=== PATIENT | female | born 1950 | race Caucasian/White ===

== ENCOUNTER 2017-12-26 11:41 | Day surgery (SDC) | payer MEDICARE, OTHER ==
[2017-12-26] MEDS ORDERED: PROPOFOL 20 ML (12:40)
[2017-12-26] MEDS ORDERED: ALBUTEROL HFA 8 GM INHALER (12:40)
[2017-12-26] MEDS ORDERED: LIDOCAINE 2% (SDV) 5 ML INJ (12:40)
[2017-12-29] MEDS ORDERED: PROPOFOL 40 ML (15:07)
== END 2017-12-26 14:51 | disposition home or self-care (01) ==
LOC: GIL 11:41
DX: K21.9 Gastro-esophageal reflux disease without esophagitis (principal); E07.9 Disorder of thyroid, unspecified; E78.5 Hyperlipidemia, unspecified; I10 Essential (primary) hypertension; E66.9 Obesity, unspecified; Z68.36 Body mass index [BMI] 36.0-36.9, adult; J45.909 Unspecified asthma, uncomplicated
CPT/HCPCS: 43235

== ENCOUNTER 2017-12-27 22:05 | Inpatient (IN) | payer MEDICARE, OTHER ==
[2017-12-27] MEDS: morphine 2 MG INJ IV (23:26)
[2017-12-27] MEDS: ONDANSETRON 4 MG INJ IV (23:27)
[2017-12-27 23:50] LABS: URINE BLOOD (Dip) POC Trace-intact (NEGATIVE); URINE KETONES (Dip) POC Negative (NEGATIVE); URINE LEUKOCYTE EST (Dip) POC Negative (NEGATIVE); URINE NITRITE (Dip) POC Negative (NEGATIVE); URINE TOTAL PROTEIN POC 1+ (NEGATIVE)
[2017-12-27 23:59] LABS: ADD MAN DIFF? NO
[2017-12-28 00:01] LABS: BASOPHILS % 0.1 % (0.0-2.0); HEMOGLOBIN 9.8 g/dl (12.0-16.0); LYMPHOCYTES % 5.4 % (15.0-51.0); MEAN CORPUSCULAR HEMOGLOBIN 36.7 pg (29.0-33.0); MEAN CORPUSCULAR VOLUME 104.9 fl (82.0-101.0); MEAN PLATELET VOLUME 10.4 fl (7.4-10.4); MONOCYTE # 1.1 10^3/ul (0.3-0.9); MONOCYTES % 5.7 % (0.0-11.0); NEUTROPHIL # 16.3 10^3/ul (1.6-7.5); NEUTROPHILS % 87.6 % (39.0-77.0); NUCLEATED RED BLOOD CELLS # 0.1 10^3/ul (0.0-0.0); NUCLEATED RED BLOOD CELLS% 0.3 /100WBC (0.0-0.0); PLATELET COUNT 536 10^3/UL (140-415); RED BLOOD COUNT 2.67 10^6/ul (4.20-5.40); RED CELL DISTRIBUTION WIDTH 17.6 % (11.5-14.5)
[2017-12-28 00:01] LABS: WHITE BLOOD COUNT 18.6 10^3/ul (4.8-10.8)
[2017-12-28 00:25] LABS: ALANINE AMINOTRANSFERASE 37 IU/L (13-69); ALBUMIN 5.3 g/dl (3.3-4.9); ALBUMIN/GLOBULIN RATIO 1.89; ALKALINE PHOSPHATASE 82 IU/L (42-121); ANION GAP 19 (8-16); ASPARTATE AMINO TRANSFERASE 54 IU/L (15-46); BILIRUBIN,INDIRECT 3.7 mg/dl (0-1.1); BILIRUBIN,TOTAL 3.7 mg/dl (0.2-1.3); BLOOD UREA NITROGEN 21 mg/dl (7-20); CALCIUM 10.9 mg/dl (8.4-10.2); CARBON DIOXIDE 27 mmol/L (21-31); CHLORIDE 98 mmol/L (97-110); CREATININE 1.22 mg/dl (0.44-1.00); GLUCOSE 173 mg/dl (70-220); LIPASE 49 U/L (23-300); POTASSIUM 3.3 mmol/L (3.5-5.1); SODIUM 141 mmol/L (135-144); TOTAL PROTEIN 8.1 g/dl (6.1-8.1)
[2017-12-28 00:35] LABS: POSITIVE DIFF 10
[2017-12-28] MEDS: LABETALOL HCL 20MG INJ IV (01:12)
[2017-12-28] MEDS ORDERED: POTASSIUM CHLORIDE 50 ML IVPB (03:00)
[2017-12-28] MEDS ORDERED: NACL 0.9% 3 ML SYG IV (03:30)
[2017-12-28] MEDS ORDERED: NA PHOSPHATE/BIPHOS 133 ML ENEMA PR (03:30)
[2017-12-28] MEDS ORDERED: ALBUTEROL HFA 8 GM INHALER INH (03:30)
[2017-12-28] MEDS ORDERED: METOCLOPRAMIDE 10 MG INJ IV (03:30)
[2017-12-28] MEDS ORDERED: BISACODYL 10 MG SUPP PR (03:30)
[2017-12-28] MEDS: ONDANSETRON 4 MG INJ IV ×2 (03:53→20:32)
[2017-12-28] MEDS: PIPER-TAZO 2.25 GM (PMX) 50 ML IVPB ×4 (04:04→18:22)
[2017-12-28] MEDS: POTASSIUM CHLORIDE 10 MEQ in DEXTROSE 5% 50 ML IV (04:05)
[2017-12-28] MEDS: D5W-0.45 NACL + KCL 20 MEQ 1,000 ML IV ×3 (06:12→23:18)
[2017-12-28] MEDS: LEVOTHYROXINE 100 MCG VIAL IV (06:12)
[2017-12-28] MEDS: PANTOPRAZOLE 40 MG INJ IV (06:12)
[2017-12-28 13:46] LABS: LACTIC ACID 1.4 mmol/L (0.5-2.0)
[2017-12-28] MEDS ORDERED: POTASSIUM CHLORIDE 100 ML IVPB ×2 (14:00→18:00)
[2017-12-28] MEDS: SALMETEROL/FLUTICASONE 500/50 INHA INH ×2 (17:09→21:05)
[2017-12-28] MEDS: TIOTROPIUM 18 MCG CAPSULE INHA DEV INH (17:10)
[2017-12-28] MEDS: METOCLOPRAMIDE 5 MG TAB PO ×2 (17:11→22:32)
[2017-12-28] MEDS: PANTOPRAZOLE (EC) 40 MG TAB PO (17:11)
[2017-12-28] MEDS: MONTELUKAST 10 MG TAB PO (17:12)
[2017-12-28] MEDS: POTASSIUM CHLORIDE 100 ML IVPB ×2 (20:01→22:09)
[2017-12-28] MEDS: morphine 2 MG INJ IV (20:32)
[2017-12-28] MEDS: FAMOTIDINE 20 MG TAB PO (21:05)
[2017-12-28] MEDS: DOCUSATE SODIUM 250 MG CAP PO (22:30)
[2017-12-28] MEDS: ATORVASTATIN 10 MG TAB PO (22:30)
[2017-12-28] MEDS: FISH OIL 1,000 MG CAP PO (22:30)
[2017-12-28] MEDS: METOPROLOL (XL) 100 MG TAB PO (22:35)
[2017-12-28] MEDS: BUPROPION (XL) 150 MG TAB PO (22:36)
[2017-12-29] MEDS: PIPER-TAZO 2.25 GM (PMX) 50 ML IVPB ×4 (00:26→17:22)
[2017-12-29 05:52] LABS: ADD MAN DIFF? NO
[2017-12-29 06:00] LABS: BASOPHILS % 0.1 % (0.0-2.0); HEMATOCRIT 26.2 % (37.0-47.0); HEMOGLOBIN 9.2 g/dl (12.0-16.0); LYMPHOCYTES # 1.3 10^3/ul (0.8-2.9); LYMPHOCYTES % 7.8 % (15.0-51.0); MEAN CORPUSCULAR HEMOGLOBIN 37.6 pg (29.0-33.0); MEAN CORPUSCULAR HGB CONC 35.1 g/dl (32.0-37.0); MEAN CORPUSCULAR VOLUME 106.9 fl (82.0-101.0); MEAN PLATELET VOLUME 9.8 fl (7.4-10.4); MONOCYTE # 1.1 10^3/ul (0.3-0.9); MONOCYTES % 6.7 % (0.0-11.0); NEUTROPHIL # 13.9 10^3/ul (1.6-7.5); NEUTROPHILS % 83.7 % (39.0-77.0); NUCLEATED RED BLOOD CELLS # 0.1 10^3/ul (0.0-0.0); NUCLEATED RED BLOOD CELLS% 0.3 /100WBC (0.0-0.0); PLATELET COUNT 447 10^3/UL (140-415); RED BLOOD COUNT 2.45 10^6/ul (4.20-5.40); RED CELL DISTRIBUTION WIDTH 18.5 % (11.5-14.5)
[2017-12-29 06:00] LABS: WHITE BLOOD COUNT 16.7 10^3/ul (4.8-10.8)
[2017-12-29 06:13] LABS: ALANINE AMINOTRANSFERASE 40 IU/L (13-69); ALBUMIN 4.2 g/dl (3.3-4.9); ALKALINE PHOSPHATASE 69 IU/L (42-121); ASPARTATE AMINO TRANSFERASE 49 IU/L (15-46); BILIRUBIN,INDIRECT 2.5 mg/dl (0-1.1); BILIRUBIN,TOTAL 2.5 mg/dl (0.2-1.3); TOTAL PROTEIN 6.8 g/dl (6.1-8.1)
[2017-12-29 06:17] LABS: ALANINE AMINOTRANSFERASE 42 IU/L (13-69); ALBUMIN 4.3 g/dl (3.3-4.9); ALBUMIN/GLOBULIN RATIO 1.72; ALKALINE PHOSPHATASE 69 IU/L (42-121); ANION GAP 15 (8-16); ASPARTATE AMINO TRANSFERASE 50 IU/L (15-46); BILIRUBIN,INDIRECT 2.6 mg/dl (0-1.1); BILIRUBIN,TOTAL 2.6 mg/dl (0.2-1.3); BLOOD UREA NITROGEN 28 mg/dl (7-20); CALCIUM 9.2 mg/dl (8.4-10.2); CARBON DIOXIDE 25 mmol/L (21-31); CHLORIDE 106 mmol/L (97-110); CREATININE 1.27 mg/dl (0.44-1.00); GLUCOSE 135 mg/dl (70-220); POTASSIUM 3.9 mmol/L (3.5-5.1); SODIUM 142 mmol/L (135-144); TOTAL PROTEIN 6.8 g/dl (6.1-8.1)
[2017-12-29] MEDS ORDERED: LIDOCAINE 2% (SDV) 5 ML INJ (07:00)
[2017-12-29] MEDS: LEVOTHYROXINE 75 MCG TAB PO (07:00)
[2017-12-29] MEDS ORDERED: PROPOFOL 200 MG INJ (07:00)
[2017-12-29] MEDS: METOCLOPRAMIDE 5 MG TAB PO ×5 (07:05→20:52)
[2017-12-29 07:13] LABS: PHOSPHORUS 2.7 mg/dl (2.5-4.9)
[2017-12-29 07:13] LABS: MAGNESIUM 1.8 mg/dl (1.7-2.5)
[2017-12-29] MEDS: ONDANSETRON 4 MG INJ IV (07:46)
[2017-12-29 08:31] LABS: ADD MAN DIFF? NO
[2017-12-29 08:42] LABS: BASOPHILS % 0.2 % (0.0-2.0); EOSINOPHILS % 0.1 % (0.0-7.0); HEMATOCRIT 26.3 % (37.0-47.0); HEMOGLOBIN 9.1 g/dl (12.0-16.0); LYMPHOCYTES # 1.2 10^3/ul (0.8-2.9); LYMPHOCYTES % 7.3 % (15.0-51.0); MEAN CORPUSCULAR HEMOGLOBIN 37.3 pg (29.0-33.0); MEAN CORPUSCULAR HGB CONC 34.6 g/dl (32.0-37.0); MEAN CORPUSCULAR VOLUME 107.8 fl (82.0-101.0); MEAN PLATELET VOLUME 10.1 fl (7.4-10.4); MONOCYTE # 1.1 10^3/ul (0.3-0.9); MONOCYTES % 6.7 % (0.0-11.0); NEUTROPHIL # 13.4 10^3/ul (1.6-7.5); NEUTROPHILS % 83.3 % (39.0-77.0); NUCLEATED RED BLOOD CELLS # 0.1 10^3/ul (0.0-0.0); NUCLEATED RED BLOOD CELLS% 0.3 /100WBC (0.0-0.0); PLATELET COUNT 446 10^3/UL (140-415); RED BLOOD COUNT 2.44 10^6/ul (4.20-5.40); RED CELL DISTRIBUTION WIDTH 18.9 % (11.5-14.5)
[2017-12-29] MEDS: ASPIRIN (EC) 81 MG TAB PO (08:53)
[2017-12-29] MEDS: PANTOPRAZOLE (EC) 40 MG TAB PO (08:53)
[2017-12-29] MEDS: CHOLECALCIFEROL 1,000 UNIT TAB PO (08:53)
[2017-12-29] MEDS: FISH OIL 1,000 MG CAP PO ×2 (08:53→20:50)
[2017-12-29] MEDS: DOCUSATE SODIUM 250 MG CAP PO ×2 (08:53→20:49)
[2017-12-29] MEDS: DULOXETINE 30 MG CAP DR PO (08:53)
[2017-12-29] MEDS: MONTELUKAST 10 MG TAB PO (08:53)
[2017-12-29] MEDS: VITAMIN E 400 UNITS CAP PO (08:54)
[2017-12-29] MEDS: D5W-0.45 NACL + KCL 20 MEQ 1,000 ML IV ×3 (08:54→19:51)
[2017-12-29] MEDS: HYDROCHLOROTHIAZIDE 12.5 MG CAP PO ×2 (09:11→11:44)
[2017-12-29] MEDS: METOPROLOL (XL) 100 MG TAB PO ×3 (09:11→20:50)
[2017-12-29] MEDS: TIOTROPIUM 18 MCG CAPSULE INHA DEV INH (09:12)
[2017-12-29] MEDS: SALMETEROL/FLUTICASONE 500/50 INHA INH ×2 (09:12→20:49)
[2017-12-29] MEDS: METOCLOPRAMIDE 10 MG INJ IV (10:00)
[2017-12-29] MEDS: ENALAPRILAT 1.25 MG INJ IV (10:58)
[2017-12-29] MEDS: VALSARTAN 160 MG TAB PO (11:43)
[2017-12-29] MEDS: BUPROPION (XL) 150 MG TAB PO (20:52)
[2017-12-29] MEDS: FAMOTIDINE 20 MG TAB PO (20:52)
[2017-12-29] MEDS: ATORVASTATIN 10 MG TAB PO (22:05)
[2017-12-30] MEDS: PIPER-TAZO 2.25 GM (PMX) 50 ML IVPB ×5 (00:06→23:44)
[2017-12-30] MEDS: ZOLPIDEM 5 MG TAB PO (00:38)
[2017-12-30] MEDS: ENALAPRILAT 1.25 MG INJ IV ×2 (04:15→12:14)
[2017-12-30 05:08] LABS: ADD MAN DIFF? NO
[2017-12-30 05:13] LABS: WHITE BLOOD COUNT 11.9 10^3/ul (4.8-10.8)
[2017-12-30 05:13] LABS: BASOPHILS % 0.2 % (0.0-2.0); EOSINOPHILS % 0.1 % (0.0-7.0); HEMATOCRIT 24.1 % (37.0-47.0); HEMOGLOBIN 8.4 g/dl (12.0-16.0); LYMPHOCYTES # 1.4 10^3/ul (0.8-2.9); LYMPHOCYTES % 11.5 % (15.0-51.0); MEAN CORPUSCULAR HGB CONC 34.9 g/dl (32.0-37.0); MEAN CORPUSCULAR VOLUME 106.2 fl (82.0-101.0); MEAN PLATELET VOLUME 9.8 fl (7.4-10.4); MONOCYTES % 8.6 % (0.0-11.0); NEUTROPHIL # 9.3 10^3/ul (1.6-7.5); NEUTROPHILS % 78.2 % (39.0-77.0); NUCLEATED RED BLOOD CELLS # 0.1 10^3/ul (0.0-0.0); NUCLEATED RED BLOOD CELLS% 0.6 /100WBC (0.0-0.0); PLATELET COUNT 384 10^3/UL (140-415); RED BLOOD COUNT 2.27 10^6/ul (4.20-5.40)
[2017-12-30] MEDS: D5W-0.45 NACL + KCL 20 MEQ 1,000 ML IV ×3 (05:18→18:20)
[2017-12-30 05:47] LABS: ALANINE AMINOTRANSFERASE 43 IU/L (13-69); ALBUMIN 3.7 g/dl (3.3-4.9); ALBUMIN/GLOBULIN RATIO 1.54; ALKALINE PHOSPHATASE 68 IU/L (42-121); AMYLASE 68 U/L (11-123); ANION GAP 11 (8-16); ASPARTATE AMINO TRANSFERASE 39 IU/L (15-46); BLOOD UREA NITROGEN 25 mg/dl (7-20); CALCIUM 8.7 mg/dl (8.4-10.2); CARBON DIOXIDE 28 mmol/L (21-31); CHLORIDE 104 mmol/L (97-110); CREATININE 1.12 mg/dl (0.44-1.00); GLUCOSE 114 mg/dl (70-220); LIPASE 73 U/L (23-300); POTASSIUM 3.3 mmol/L (3.5-5.1); SODIUM 140 mmol/L (135-144); TOTAL PROTEIN 6.1 g/dl (6.1-8.1)
[2017-12-30] MEDS ORDERED: PANTOPRAZOLE (EC) 40 MG TAB PO (06:00)
[2017-12-30] MEDS ORDERED: BISMUTH SUBSALICYLATE PO (07:35)
[2017-12-30] MEDS: METOCLOPRAMIDE 5 MG TAB PO ×4 (07:43→21:22)
[2017-12-30] MEDS: LEVOTHYROXINE 75 MCG TAB PO (07:43)
[2017-12-30] MEDS: HYDROCHLOROTHIAZIDE 12.5 MG CAP PO (07:43)
[2017-12-30] MEDS: LACTATED RINGER'S 500 ML IV (07:44)
[2017-12-30] MEDS: METOPROLOL (XL) 100 MG TAB PO ×2 (07:59→21:22)
[2017-12-30] MEDS: TIOTROPIUM 18 MCG CAPSULE INHA DEV INH (08:38)
[2017-12-30] MEDS: SALMETEROL/FLUTICASONE 500/50 INHA INH ×2 (08:38→21:18)
[2017-12-30] MEDS: CHOLECALCIFEROL 1,000 UNIT TAB PO (08:39)
[2017-12-30] MEDS: ASPIRIN (EC) 81 MG TAB PO (08:39)
[2017-12-30] MEDS: POTASSIUM CHLORIDE (SR) 20 MEQ TAB PO (08:39)
[2017-12-30] MEDS: MONTELUKAST 10 MG TAB PO (08:39)
[2017-12-30] MEDS: VALSARTAN 160 MG TAB PO (08:39)
[2017-12-30] MEDS: VITAMIN E 400 UNITS CAP PO (08:39)
[2017-12-30] MEDS: PANTOPRAZOLE (EC) 40 MG TAB PO ×2 (08:40→21:20)
[2017-12-30] MEDS: AMOXICILLIN 250 MG CAP PO ×2 (08:40→21:20)
[2017-12-30] MEDS: BISMUTH SUBSALICYLATE 240 ML BTL PO ×3 (08:41→21:22)
[2017-12-30] MEDS: FISH OIL 1,000 MG CAP PO ×2 (09:00→21:22)
[2017-12-30] MEDS: ONDANSETRON 4 MG INJ IV (09:54)
[2017-12-30] MEDS: CLARITHROMYCIN 500 MG TAB PO ×2 (09:56→21:19)
[2017-12-30] MEDS: DOCUSATE SODIUM 250 MG CAP PO ×2 (10:17→21:20)
[2017-12-30] MEDS: DULOXETINE 30 MG CAP DR PO (10:17)
[2017-12-30] MEDS: AMLODIPINE 5 MG TAB PO (16:27)
[2017-12-30] MEDS: DOXAZOSIN 1 MG TAB PO (19:10)
[2017-12-30] MEDS: ATORVASTATIN 10 MG TAB PO (21:15)
[2017-12-30] MEDS: BUPROPION (XL) 150 MG TAB PO (21:15)
[2017-12-30] MEDS: DOXAZOSIN 2 MG TAB PO (21:20)
[2017-12-30] MEDS: FAMOTIDINE 20 MG TAB PO (21:20)
[2017-12-31] MEDS: D5W-0.45 NACL + KCL 20 MEQ 1,000 ML IV ×2 (02:34→16:26)
[2017-12-31] MEDS: PIPER-TAZO 2.25 GM (PMX) 50 ML IVPB ×2 (05:10→11:41)
[2017-12-31] MEDS: DOXAZOSIN 2 MG TAB PO ×2 (05:12→14:00)
[2017-12-31 05:37] LABS: ADD MAN DIFF? NO
[2017-12-31 05:41] LABS: BASOPHILS % 0.3 % (0.0-2.0); EOSINOPHILS # 0.1 10^3/ul (0.0-0.5); EOSINOPHILS % 0.8 % (0.0-7.0); HEMATOCRIT 22.1 % (37.0-47.0); HEMOGLOBIN 7.6 g/dl (12.0-16.0); LYMPHOCYTES # 1.4 10^3/ul (0.8-2.9); LYMPHOCYTES % 19.1 % (15.0-51.0); MEAN CORPUSCULAR HEMOGLOBIN 36.9 pg (29.0-33.0); MEAN CORPUSCULAR HGB CONC 34.4 g/dl (32.0-37.0); MEAN CORPUSCULAR VOLUME 107.3 fl (82.0-101.0); MONOCYTE # 0.8 10^3/ul (0.3-0.9); MONOCYTES % 10.5 % (0.0-11.0); NEUTROPHIL # 4.9 10^3/ul (1.6-7.5); NUCLEATED RED BLOOD CELLS% 0.3 /100WBC (0.0-0.0); PLATELET COUNT 299 10^3/UL (140-415); RED BLOOD COUNT 2.06 10^6/ul (4.20-5.40); RED CELL DISTRIBUTION WIDTH 17.9 % (11.5-14.5)
[2017-12-31 05:41] LABS: WHITE BLOOD COUNT 7.2 10^3/ul (4.8-10.8)
[2017-12-31] MEDS: METOCLOPRAMIDE 5 MG TAB PO ×4 (06:01→20:55)
[2017-12-31] MEDS: LEVOTHYROXINE 75 MCG TAB PO (06:01)
[2017-12-31 06:28] LABS: ALANINE AMINOTRANSFERASE 37 IU/L (13-69); ALBUMIN 3.3 g/dl (3.3-4.9); ALBUMIN/GLOBULIN RATIO 1.65; ALKALINE PHOSPHATASE 52 IU/L (42-121); ANION GAP 14 (8-16); ASPARTATE AMINO TRANSFERASE 25 IU/L (15-46); BILIRUBIN,INDIRECT 0.8 mg/dl (0-1.1); BILIRUBIN,TOTAL 0.8 mg/dl (0.2-1.3); BLOOD UREA NITROGEN 19 mg/dl (7-20); CALCIUM 7.9 mg/dl (8.4-10.2); CARBON DIOXIDE 26 mmol/L (21-31); CHLORIDE 100 mmol/L (97-110); CREATININE 0.99 mg/dl (0.44-1.00); GLUCOSE 148 mg/dl (70-220); LIPASE 79 U/L (23-300); POTASSIUM 3.5 mmol/L (3.5-5.1); SODIUM 136 mmol/L (135-144); TOTAL PROTEIN 5.3 g/dl (6.1-8.1)
[2017-12-31] MEDS: SALMETEROL/FLUTICASONE 500/50 INHA INH ×2 (08:16→20:56)
[2017-12-31] MEDS: FISH OIL 1,000 MG CAP PO ×2 (08:16→20:56)
[2017-12-31] MEDS: TIOTROPIUM 18 MCG CAPSULE INHA DEV INH (08:17)
[2017-12-31] MEDS: PANTOPRAZOLE (EC) 40 MG TAB PO ×2 (08:17→20:54)
[2017-12-31] MEDS: VALSARTAN 160 MG TAB PO (08:18)
[2017-12-31] MEDS: DOCUSATE SODIUM 250 MG CAP PO ×2 (08:18→20:55)
[2017-12-31] MEDS: HYDROCHLOROTHIAZIDE 12.5 MG CAP PO (08:18)
[2017-12-31] MEDS: ASPIRIN (EC) 81 MG TAB PO (08:19)
[2017-12-31] MEDS: MONTELUKAST 10 MG TAB PO (08:19)
[2017-12-31] MEDS: CHOLECALCIFEROL 1,000 UNIT TAB PO (08:19)
[2017-12-31] MEDS: DULOXETINE 30 MG CAP DR PO (08:20)
[2017-12-31] MEDS: AMLODIPINE 5 MG TAB PO (08:20)
[2017-12-31] MEDS: AMOXICILLIN 250 MG CAP PO (08:21)
[2017-12-31] MEDS: CLARITHROMYCIN 500 MG TAB PO ×2 (08:22→20:54)
[2017-12-31] MEDS: METOPROLOL (XL) 100 MG TAB PO ×2 (08:22→20:55)
[2017-12-31] MEDS: BISMUTH SUBSALICYLATE 240 ML BTL PO ×4 (08:23→20:59)
[2017-12-31] MEDS: VITAMIN E 400 UNITS CAP PO (08:27)
[2017-12-31] MEDS: LEVOFLOXACIN 500 MG TAB PO (13:14)
[2017-12-31] MEDS: BUPROPION (XL) 150 MG TAB PO (20:53)
[2017-12-31] MEDS: FAMOTIDINE 20 MG TAB PO (20:53)
[2017-12-31] MEDS: ATORVASTATIN 10 MG TAB PO (20:55)
[2018-01-01] MEDS: AMOXICILLIN 250 MG CAP PO ×3 (00:21→21:21)
[2018-01-01] MEDS: DOXAZOSIN 2 MG TAB PO ×4 (00:26→21:24)
[2018-01-01] MEDS: D5W-0.45 NACL + KCL 20 MEQ 1,000 ML IV ×2 (03:55→16:05)
[2018-01-01] MEDS: PANTOPRAZOLE (EC) 40 MG TAB PO ×2 (03:58→21:21)
[2018-01-01 05:16] LABS: ADD MAN DIFF? NO
[2018-01-01 05:21] LABS: WHITE BLOOD COUNT 5.1 10^3/ul (4.8-10.8)
[2018-01-01 05:21] LABS: BASOPHILS % 0.2 % (0.0-2.0); EOSINOPHILS # 0.1 10^3/ul (0.0-0.5); EOSINOPHILS % 2.2 % (0.0-7.0); HEMATOCRIT 21.6 % (37.0-47.0); HEMOGLOBIN 7.7 g/dl (12.0-16.0); MEAN CORPUSCULAR HEMOGLOBIN 37.6 pg (29.0-33.0); MEAN CORPUSCULAR HGB CONC 35.6 g/dl (32.0-37.0); MEAN CORPUSCULAR VOLUME 105.4 fl (82.0-101.0); MONOCYTE # 0.5 10^3/ul (0.3-0.9); NEUTROPHIL # 3.4 10^3/ul (1.6-7.5); NEUTROPHILS % 66.8 % (39.0-77.0); NUCLEATED RED BLOOD CELLS% 0.4 /100WBC (0.0-0.0); PLATELET COUNT 275 10^3/UL (140-415); RED BLOOD COUNT 2.05 10^6/ul (4.20-5.40); RED CELL DISTRIBUTION WIDTH 17.6 % (11.5-14.5)
[2018-01-01 06:08] LABS: ANION GAP 13 (8-16); BLOOD UREA NITROGEN 15 mg/dl (7-20); CALCIUM 7.8 mg/dl (8.4-10.2); CARBON DIOXIDE 22 mmol/L (21-31); CHLORIDE 101 mmol/L (97-110); CREATININE 0.93 mg/dl (0.44-1.00); GLUCOSE 109 mg/dl (70-220); POTASSIUM 3.7 mmol/L (3.5-5.1); SODIUM 132 mmol/L (135-144)
[2018-01-01] MEDS: LEVOFLOXACIN 250 MG TAB PO (06:57)
[2018-01-01] MEDS: LEVOTHYROXINE 75 MCG TAB PO (06:57)
[2018-01-01] MEDS: METOCLOPRAMIDE 5 MG TAB PO ×4 (07:00→21:22)
[2018-01-01] MEDS: BISMUTH SUBSALICYLATE 240 ML BTL PO ×4 (08:16→21:21)
[2018-01-01] MEDS: SALMETEROL/FLUTICASONE 500/50 INHA INH ×2 (08:17→21:21)
[2018-01-01] MEDS: DULOXETINE 30 MG CAP DR PO (08:17)
[2018-01-01] MEDS: CLARITHROMYCIN 500 MG TAB PO ×2 (08:18→21:21)
[2018-01-01] MEDS: DOCUSATE SODIUM 250 MG CAP PO ×2 (08:18→21:22)
[2018-01-01] MEDS: VITAMIN E 400 UNITS CAP PO (08:18)
[2018-01-01] MEDS: FISH OIL 1,000 MG CAP PO ×2 (08:18→21:22)
[2018-01-01] MEDS: CHOLECALCIFEROL 1,000 UNIT TAB PO (08:19)
[2018-01-01] MEDS: HYDROCHLOROTHIAZIDE 12.5 MG CAP PO (08:19)
[2018-01-01] MEDS: VALSARTAN 160 MG TAB PO (08:19)
[2018-01-01] MEDS: METOPROLOL (XL) 100 MG TAB PO ×2 (08:20→21:24)
[2018-01-01] MEDS: ASPIRIN (EC) 81 MG TAB PO (08:20)
[2018-01-01] MEDS: AMLODIPINE 5 MG TAB PO (08:20)
[2018-01-01] MEDS: MONTELUKAST 10 MG TAB PO (08:20)
[2018-01-01] MEDS: INFLUENZA VIRUS VACCINE 0.5 ML (DISPENSING) IM* (09:35)
[2018-01-01] MEDS: TIOTROPIUM 18 MCG CAPSULE INHA DEV INH (10:39)
[2018-01-01] MEDS: BUPROPION (XL) 150 MG TAB PO (21:22)
[2018-01-01] MEDS: ATORVASTATIN 10 MG TAB PO (21:22)
[2018-01-01] MEDS: FAMOTIDINE 20 MG TAB PO (21:22)
[2018-01-02 01:04] LABS: IMMEDIATE SPIN CROSSMATCH 1 1
[2018-01-02] MEDS: D5W-0.45 NACL + KCL 20 MEQ 1,000 ML IV ×2 (03:18→13:18)
[2018-01-02] MEDS: DOXAZOSIN 2 MG TAB PO ×2 (06:26→14:00)
[2018-01-02] MEDS: LEVOTHYROXINE 75 MCG TAB PO (06:26)
[2018-01-02] MEDS: LEVOFLOXACIN 250 MG TAB PO (06:26)
[2018-01-02] MEDS: BISMUTH SUBSALICYLATE 240 ML BTL PO ×3 (07:50→17:55)
[2018-01-02 08:14] LABS: ADD MAN DIFF? NO
[2018-01-02 08:15] LABS: WHITE BLOOD COUNT 5.5 10^3/ul (4.8-10.8)
[2018-01-02 08:15] LABS: BASOPHILS % 0.2 % (0.0-2.0); EOSINOPHILS # 0.1 10^3/ul (0.0-0.5); EOSINOPHILS % 2.4 % (0.0-7.0); HEMATOCRIT 24.6 % (37.0-47.0); HEMOGLOBIN 8.6 g/dl (12.0-16.0); LYMPHOCYTES # 1.1 10^3/ul (0.8-2.9); LYMPHOCYTES % 19.5 % (15.0-51.0); MEAN CORPUSCULAR VOLUME 102.9 fl (82.0-101.0); MONOCYTE # 0.5 10^3/ul (0.3-0.9); MONOCYTES % 9.9 % (0.0-11.0); NEUTROPHIL # 3.7 10^3/ul (1.6-7.5); NEUTROPHILS % 67.1 % (39.0-77.0); PLATELET COUNT 232 10^3/UL (140-415); RED BLOOD COUNT 2.39 10^6/ul (4.20-5.40); RED CELL DISTRIBUTION WIDTH 20.1 % (11.5-14.5)
[2018-01-02] MEDS: AMLODIPINE 5 MG TAB PO (09:00)
[2018-01-02] MEDS: HYDROCHLOROTHIAZIDE 12.5 MG CAP PO (09:00)
[2018-01-02] MEDS: METOPROLOL (XL) 100 MG TAB PO (09:00)
[2018-01-02] MEDS: VALSARTAN 160 MG TAB PO (09:00)
[2018-01-02] MEDS: SALMETEROL/FLUTICASONE 500/50 INHA INH (09:27)
[2018-01-02] MEDS: ASPIRIN (EC) 81 MG TAB PO (09:28)
[2018-01-02] MEDS: FISH OIL 1,000 MG CAP PO (09:28)
[2018-01-02] MEDS: MONTELUKAST 10 MG TAB PO (09:28)
[2018-01-02] MEDS: DOCUSATE SODIUM 250 MG CAP PO (09:28)
[2018-01-02] MEDS: PANTOPRAZOLE (EC) 40 MG TAB PO (09:28)
[2018-01-02] MEDS: CHOLECALCIFEROL 1,000 UNIT TAB PO (09:28)
[2018-01-02] MEDS: VITAMIN E 400 UNITS CAP PO (09:28)
[2018-01-02] MEDS: METOCLOPRAMIDE 5 MG TAB PO ×3 (09:28→17:25)
[2018-01-02] MEDS: TIOTROPIUM 18 MCG CAPSULE INHA DEV INH (09:28)
[2018-01-02] MEDS: AMOXICILLIN 250 MG CAP PO (09:29)
[2018-01-02] MEDS: DULOXETINE 30 MG CAP DR PO (09:29)
[2018-01-02] MEDS: CLARITHROMYCIN 500 MG TAB PO (09:29)
== END 2018-01-02 19:10 | disposition home or self-care (01) | DRG 872 ==
LOC: MS1 12-30 16:45 → E/R 22:05 → MS3 12-28 03:25
PROC: 0DB78ZX Excision of Stomach, Pylorus, Via Natural or Artificial Opening Endoscopic, Diagnostic (ICD-10-PCS; principal; 2017-12-29 14:53)
PROC: 0D578ZZ Destruction of Stomach, Pylorus, Via Natural or Artificial Opening Endoscopic (ICD-10-PCS; 2017-12-29 14:53)
DX: A41.9 Sepsis, unspecified organism (principal); N17.9 Acute kidney failure, unspecified; E87.1 Hypo-osmolality and hyponatremia; N30.00 Acute cystitis without hematuria; D64.9 Anemia, unspecified; E86.0 Dehydration; Z90.49 Acquired absence of other specified parts of digestive tract; K21.9 Gastro-esophageal reflux disease without esophagitis; E03.9 Hypothyroidism, unspecified; J44.9 Chronic obstructive pulmonary disease, unspecified; Z86.11 Personal history of tuberculosis; E66.9 Obesity, unspecified; Z68.35 Body mass index [BMI] 35.0-35.9, adult; I10 Essential (primary) hypertension; Z90.710 Acquired absence of both cervix and uterus; K44.9 Diaphragmatic hernia without obstruction or gangrene; K91.5 Postcholecystectomy syndrome; Y83.8 Other surgical procedures as the cause of abnormal reaction of the patient, or of later complication, without mention of misadventure at the time of the procedure; K29.60 Other gastritis without bleeding; K55.20 Angiodysplasia of colon without hemorrhage; E87.6 Hypokalemia; B96.20 Unspecified Escherichia coli [E. coli] as the cause of diseases classified elsewhere; B96.89 Other specified bacterial agents as the cause of diseases classified elsewhere; K31.84 Gastroparesis
CPT/HCPCS: 36415; 36430; 71045; 71046; 74176; 74181; 76705; 80048; 80053; 80076; 81003; 82150; 83605; 83690; 83735; 84100; 85025; 86850; 86860; 86870; 86880; 86900; 86901; 86902; 86906; 86920; 86970; 86971; 86978; 87040; 87086; 88305; 88312; 96374; 96375; 96376; 99285-25

== ENCOUNTER 2018-01-03 15:56 | Inpatient (IN) | payer MEDICARE, OTHER ==
[2018-01-03 16:29] LABS: ADD MAN DIFF? NO
[2018-01-03] MEDS: SOD CHLORIDE 0.9% 1,000 ML IV (16:31)
[2018-01-03 16:32] LABS: WHITE BLOOD COUNT 9.3 10^3/ul (4.8-10.8)
[2018-01-03 16:32] LABS: ABNORMAL IP MESSAGE 1; BASOPHILS % 0.1 % (0.0-2.0); EOSINOPHILS % 0.2 % (0.0-7.0); HEMATOCRIT 29.5 % (37.0-47.0); HEMOGLOBIN 10.9 g/dl (12.0-16.0); LYMPHOCYTES # 0.5 10^3/ul (0.8-2.9); MEAN CORPUSCULAR HEMOGLOBIN 36.7 pg (29.0-33.0); MEAN CORPUSCULAR HGB CONC 36.9 g/dl (32.0-37.0); MEAN CORPUSCULAR VOLUME 99.3 fl (82.0-101.0); MEAN PLATELET VOLUME 9.8 fl (7.4-10.4); MONOCYTE # 0.3 10^3/ul (0.3-0.9); MONOCYTES % 3.6 % (0.0-11.0); NEUTROPHIL # 8.4 10^3/ul (1.6-7.5); NEUTROPHILS % 90.3 % (39.0-77.0); PLATELET COUNT 338 10^3/UL (140-415); RED BLOOD COUNT 2.97 10^6/ul (4.20-5.40); RED CELL DISTRIBUTION WIDTH 17.3 % (11.5-14.5)
[2018-01-03] MEDS: ONDANSETRON 4 MG INJ IV ×2 (16:33→23:32)
[2018-01-03] MEDS: FAMOTIDINE 20 MG INJ IV (16:33)
[2018-01-03 16:35] LABS: POSITIVE DIFF @See below
[2018-01-03 16:50] LABS: ALANINE AMINOTRANSFERASE 37 IU/L (13-69); ALBUMIN 4.6 g/dl (3.3-4.9); ALBUMIN/GLOBULIN RATIO 1.84; ALKALINE PHOSPHATASE 71 IU/L (42-121); ANION GAP 15 (8-16); ASPARTATE AMINO TRANSFERASE 32 IU/L (15-46); BILIRUBIN,INDIRECT 1.2 mg/dl (0-1.1); BILIRUBIN,TOTAL 1.2 mg/dl (0.2-1.3); BLOOD UREA NITROGEN 17 mg/dl (7-20); CALCIUM 9.7 mg/dl (8.4-10.2); CARBON DIOXIDE 25 mmol/L (21-31); CHLORIDE 99 mmol/L (97-110); CREATININE 0.78 mg/dl (0.44-1.00); GLUCOSE 156 mg/dl (70-220); LIPASE 81 U/L (23-300); POTASSIUM 4.1 mmol/L (3.5-5.1); SODIUM 135 mmol/L (135-144); TOTAL PROTEIN 7.1 g/dl (6.1-8.1)
[2018-01-03 16:51] LABS: INR 0.95; PROTIME 12.8 Sec (11.9-14.9)
[2018-01-03 16:52] LABS: PARTIAL THROMBOPLASTIN TIME 26.5 Sec (25.0-35.0)
[2018-01-03 17:01] LABS: TROPONIN-I 0.025 ng/ml (0.00-0.12)
[2018-01-03] MEDS: morphine 2 MG INJ IV (18:29)
[2018-01-03] MEDS: PANTOPRAZOLE 40 MG INJ IV (18:29)
[2018-01-03] MEDS: METOCLOPRAMIDE 10 MG INJ IV (18:29)
[2018-01-03 18:37] LABS: ADD UMIC YES; UR ASCORBIC ACID 40 mg/dL (NEGATIVE); UR BILIRUBIN (Dip) NEGATIVE (NEGATIVE); UR BLOOD (Dip) NEGATIVE (NEGATIVE); UR CLARITY TURBID (CLEAR); UR COLOR YELLOW (YELLOW); UR GLUCOSE (Dip) 1+ mg/dL (NEGATIVE); UR KETONES (Dip) NEGATIVE (NEGATIVE); UR LEUKOCYTE ESTERASE (Dip) NEGATIVE Leu/ul (NEGATIVE); UR MUCUS FEW /HPF (NONE SEEN); UR NITRITE (Dip) NEGATIVE (NEGATIVE); UR NONSQUAMOUS EPITHELIAL CELL 1 /HPF (NONE SEEN); UR RBC 3 /HPF (0-5); UR SPECIFIC GRAVITY (Dip) 1.014 (1.003-1.030); UR SQUAMOUS EPITHELIAL CELL FEW /HPF (FEW); UR TOTAL PROTEIN (Dip) NEGATIVE (NEGATIVE); UR UROBILINOGEN (Dip) NEGATIVE (NEGATIVE); UR WBC 10 /HPF (0-5)
[2018-01-03 19:12] LABS: HEMATOCRIT 29.2 % (37.0-47.0); HEMOGLOBIN 10.7 g/dl (12.0-16.0)
[2018-01-03] MEDS: LORAZEPAM 2 MG INJ IV (21:13)
[2018-01-03] MEDS ORDERED: POTASSIUM CHLORIDE 100 ML IVPB (22:00)
[2018-01-03] MEDS: SODIUM CHLORIDE IVPB (23:32)
[2018-01-03] MEDS: POTASSIUM CHLORIDE 30 MEQ IVPB (23:32)
[2018-01-04] MEDS ORDERED: LORAZEPAM 2 MG INJ IV (05:00)
[2018-01-04] MEDS ORDERED: ONDANSETRON 4 MG INJ IV (05:00)
[2018-01-04] MEDS: SODIUM CHLORIDE IVPB (05:56)
[2018-01-04] MEDS: POTASSIUM CHLORIDE 30 MEQ IVPB (05:56)
[2018-01-04] MEDS: DEXTROSE 5%-0.45% NACL 1,000 ML IV (05:57)
[2018-01-04] MEDS: morphine 2 MG INJ IV (05:57)
[2018-01-04] MEDS: PROPOFOL 40 ML (07:31)
[2018-01-04 08:05] LABS: ADD MAN DIFF? NO
[2018-01-04 08:15] LABS: BASOPHILS % 0.3 % (0.0-2.0); EOSINOPHILS # 0.1 10^3/ul (0.0-0.5); HEMATOCRIT 26.1 % (37.0-47.0); LYMPHOCYTES # 1.3 10^3/ul (0.8-2.9); LYMPHOCYTES % 16.7 % (15.0-51.0); MEAN CORPUSCULAR HGB CONC 34.5 g/dl (32.0-37.0); MEAN CORPUSCULAR VOLUME 101.6 fl (82.0-101.0); MEAN PLATELET VOLUME 9.8 fl (7.4-10.4); MONOCYTE # 0.8 10^3/ul (0.3-0.9); MONOCYTES % 10.2 % (0.0-11.0); NEUTROPHIL # 5.5 10^3/ul (1.6-7.5); NEUTROPHILS % 71.2 % (39.0-77.0); PLATELET COUNT 287 10^3/UL (140-415); RED BLOOD COUNT 2.57 10^6/ul (4.20-5.40); RED CELL DISTRIBUTION WIDTH 17.2 % (11.5-14.5)
[2018-01-04 08:15] LABS: WHITE BLOOD COUNT 7.7 10^3/ul (4.8-10.8)
[2018-01-04 08:30] LABS: ANION GAP 12 (8-16); BLOOD UREA NITROGEN 15 mg/dl (7-20); CALCIUM 8.6 mg/dl (8.4-10.2); CARBON DIOXIDE 26 mmol/L (21-31); CHLORIDE 104 mmol/L (97-110); CREATININE 0.81 mg/dl (0.44-1.00); GLUCOSE 113 mg/dl (70-220); POTASSIUM 4.3 mmol/L (3.5-5.1); SODIUM 138 mmol/L (135-144)
[2018-01-04] MEDS ORDERED: PANTOPRAZOLE 40 MG INJ IV (10:00)
[2018-01-04] MEDS: PANTOPRAZOLE IV 80 MG in SOD CHLORIDE 0.9% 100 ML IV (10:30)
[2018-01-04] MEDS: PANTOPRAZOLE IV 80 MG in SOD CHLORIDE 0.9% 100 ML IVPB ×2 (13:32→22:28)
[2018-01-04 17:35] LABS: HEMOGLOBIN 8.3 g/dl (12.0-16.0)
[2018-01-05] MEDS: DEXTROSE 5%-0.45% NACL 1,000 ML IV ×3 (00:12→19:00)
[2018-01-05 06:50] LABS: ADD MAN DIFF? NO
[2018-01-05 06:53] LABS: BASOPHILS % 0.3 % (0.0-2.0); EOSINOPHILS # 0.4 10^3/ul (0.0-0.5); EOSINOPHILS % 6.6 % (0.0-7.0); HEMATOCRIT 25.1 % (37.0-47.0); HEMOGLOBIN 8.5 g/dl (12.0-16.0); LYMPHOCYTES # 0.8 10^3/ul (0.8-2.9); LYMPHOCYTES % 14.2 % (15.0-51.0); MEAN CORPUSCULAR HEMOGLOBIN 34.6 pg (29.0-33.0); MEAN CORPUSCULAR HGB CONC 33.9 g/dl (32.0-37.0); MEAN PLATELET VOLUME 9.8 fl (7.4-10.4); MONOCYTE # 0.5 10^3/ul (0.3-0.9); MONOCYTES % 9.2 % (0.0-11.0); PLATELET COUNT 217 10^3/UL (140-415); RED BLOOD COUNT 2.46 10^6/ul (4.20-5.40); RED CELL DISTRIBUTION WIDTH 15.9 % (11.5-14.5)
[2018-01-05 06:53] LABS: WHITE BLOOD COUNT 5.8 10^3/ul (4.8-10.8)
[2018-01-05 07:31] LABS: ANION GAP 11 (8-16); BLOOD UREA NITROGEN 11 mg/dl (7-20); CALCIUM 8.3 mg/dl (8.4-10.2); CARBON DIOXIDE 27 mmol/L (21-31); CHLORIDE 104 mmol/L (97-110); CREATININE 0.85 mg/dl (0.44-1.00); GLUCOSE 110 mg/dl (70-220); POTASSIUM 3.8 mmol/L (3.5-5.1); SODIUM 138 mmol/L (135-144)
[2018-01-05] MEDS: PANTOPRAZOLE IV 80 MG in SOD CHLORIDE 0.9% 100 ML IVPB ×2 (09:43→19:00)
[2018-01-06] MEDS: DEXTROSE 5%-0.45% NACL 1,000 ML IV (05:47)
[2018-01-06] MEDS: PANTOPRAZOLE IV 80 MG in SOD CHLORIDE 0.9% 100 ML IVPB ×2 (05:47→13:00)
[2018-01-06 16:58] LABS: HEMATOCRIT 28.1 % (37.0-47.0); HEMOGLOBIN 9.6 g/dl (12.0-16.0)
== END 2018-01-06 20:04 | disposition home or self-care (01) | DRG 379 ==
LOC: MS4 18:08 → E/R 15:56
PROC: 0W3P8ZZ Control Bleeding in Gastrointestinal Tract, Via Natural or Artificial Opening Endoscopic (ICD-10-PCS; principal; 2018-01-04 07:30)
DX: K25.4 Chronic or unspecified gastric ulcer with hemorrhage (principal); D50.0 Iron deficiency anemia secondary to blood loss (chronic); K31.811 Angiodysplasia of stomach and duodenum with bleeding; K91.61 Intraoperative hemorrhage and hematoma of a digestive system organ or structure complicating a digestive system procedure; K44.9 Diaphragmatic hernia without obstruction or gangrene; I10 Essential (primary) hypertension; E78.5 Hyperlipidemia, unspecified; E03.9 Hypothyroidism, unspecified; K21.9 Gastro-esophageal reflux disease without esophagitis; Z96.659 Presence of unspecified artificial knee joint; Z90.49 Acquired absence of other specified parts of digestive tract
CPT/HCPCS: 36415; 74176; 76705; 80048; 80053; 81001; 83690; 84484; 85014; 85018; 85025; 85610; 85730; 86850; 86870; 86880; 86900; 86901; 86971; 86978; 87081; 87086; 93005; 96374; 96375; 96376; 99285-25

== ENCOUNTER 2018-06-12 08:39 | Day surgery (SDC) | payer MEDICARE, OTHER ==
[2018-06-12] MEDS ORDERED: LIDOCAINE 2% (SDV) 5 ML INJ (10:32)
[2018-06-12] MEDS ORDERED: PROPOFOL 20 ML (10:32)
== END 2018-06-12 11:26 | disposition home or self-care (01) ==
LOC: GIL 08:39
DX: K25.9 Gastric ulcer, unspecified as acute or chronic, without hemorrhage or perforation (principal); K44.9 Diaphragmatic hernia without obstruction or gangrene; K20.9 Esophagitis, unspecified; E03.9 Hypothyroidism, unspecified; E66.01 Morbid (severe) obesity due to excess calories; Z68.37 Body mass index [BMI] 37.0-37.9, adult
CPT/HCPCS: 43239; 88305; 88312; 88313

== ENCOUNTER 2018-10-03 09:29 | Emergency (ER) | payer MEDICARE, OTHER ==
[2018-10-03] MEDS: HYDROCODONE/APAP (5/325) TAB PO (10:06)
[2018-10-03] MEDS: ONDANSETRON (ODT) 4 MG TAB ODT (10:07)
[2018-10-03] MEDS: LIDOCAINE 1% (MPF) 5 ML VIAL INJ (10:30)
== END 2018-10-03 16:00 | disposition home or self-care (01) ==
LOC: FTE 09:29
DX: S32.010A Wedge compression fracture of first lumbar vertebra, initial encounter for closed fracture (principal); I10 Essential (primary) hypertension; J44.9 Chronic obstructive pulmonary disease, unspecified; E03.9 Hypothyroidism, unspecified; W18.39XA Other fall on same level, initial encounter; Y92.9 Unspecified place or not applicable; Z96.651 Presence of right artificial knee joint
CPT/HCPCS: 12011; 70450; 70486; 72131; 73000; 73030; 73060; 99283-25

== ENCOUNTER 2018-10-06 12:26 | Inpatient (IN) | payer MEDICARE, OTHER ==
[2018-10-06 13:36] LABS: ADD MAN DIFF? NO
[2018-10-06] MEDS: morphine 4 MG/ML VIAL IV (13:43)
[2018-10-06] MEDS: PANTOPRAZOLE 40 MG INJ IV (13:43)
[2018-10-06] MEDS: SOD CHLORIDE 0.9% 1,000 ML IV (13:43)
[2018-10-06] MEDS: ONDANSETRON 4 MG INJ IV (13:43)
[2018-10-06 13:44] LABS: WHITE BLOOD COUNT 11.3 10^3/ul (4.8-10.8)
[2018-10-06 13:44] LABS: BASOPHILS % 0.1 % (0.0-2.0); EOSINOPHILS % 0.1 % (0.0-7.0); HEMATOCRIT 37.1 % (37.0-47.0); HEMOGLOBIN 12.7 g/dl (12.0-16.0); LYMPHOCYTES # 0.6 10^3/ul (0.8-2.9); LYMPHOCYTES % 5.6 % (15.0-51.0); MEAN CORPUSCULAR HEMOGLOBIN 30.2 pg (29.0-33.0); MEAN CORPUSCULAR HGB CONC 34.2 g/dl (32.0-37.0); MEAN CORPUSCULAR VOLUME 88.1 fl (82.0-101.0); MEAN PLATELET VOLUME 10.1 fl (7.4-10.4); MONOCYTE # 0.3 10^3/ul (0.3-0.9); MONOCYTES % 2.8 % (0.0-11.0); NEUTROPHIL # 10.3 10^3/ul (1.6-7.5); PLATELET COUNT 222 10^3/UL (140-415); RED BLOOD COUNT 4.21 10^6/ul (4.20-5.40); RED CELL DISTRIBUTION WIDTH 14.1 % (11.5-14.5)
[2018-10-06 14:02] LABS: ALANINE AMINOTRANSFERASE 46 IU/L (13-69); ALBUMIN 4.3 g/dl (3.3-4.9); ALBUMIN/GLOBULIN RATIO 1.59; ALKALINE PHOSPHATASE 96 IU/L (42-121); ANION GAP 11 (5-13); ASPARTATE AMINO TRANSFERASE 49 IU/L (15-46); BILIRUBIN,INDIRECT 0.6 mg/dl (0-1.1); BILIRUBIN,TOTAL 0.6 mg/dl (0.2-1.3); BLOOD UREA NITROGEN 27 mg/dl (7-20); CALCIUM 9.9 mg/dl (8.4-10.2); CARBON DIOXIDE 32 mmol/L (21-31); CHLORIDE 93 mmol/L (97-110); CREATININE 0.63 mg/dl (0.44-1.00); Estimated GFR > 60 mL/min (>60); GLUCOSE 177 mg/dl (70-220); POTASSIUM 3.8 mmol/L (3.5-5.1); SODIUM 136 mmol/L (135-144)
[2018-10-06 14:03] LABS: INR 0.99; PROTIME 13.2 Sec (11.9-14.9)
[2018-10-06 14:04] LABS: PARTIAL THROMBOPLASTIN TIME 30.9 Sec (23.0-35.0)
[2018-10-06 14:13] LABS: TROPONIN-I < 0.012 ng/ml (0.000-0.120)
[2018-10-06] MEDS ORDERED: DOCUSATE SODIUM 100 MG CAP PO (16:00)
[2018-10-06] MEDS ORDERED: ZOLPIDEM 5 MG TAB PO (16:00)
[2018-10-06] MEDS ORDERED: THEOPHYLLINE 200 MG PO (16:00)
[2018-10-06] MEDS ORDERED: HYDROCODONE/APAP (5/325) TAB PO (16:00)
[2018-10-06] MEDS ORDERED: NACL 0.9% 3 ML SYG IV (16:00)
[2018-10-06] MEDS ORDERED: ACETAMINOPHEN 325 MG TAB PO ×2 (16:00)
[2018-10-06] MEDS ORDERED: ONDANSETRON 4 MG INJ IV (16:00)
[2018-10-06 17:07] LABS: OCCULT BLOOD STOOL NEGATIVE (NEGATIVE)
[2018-10-06 18:27] LABS: ADD MAN DIFF? NO
[2018-10-06 18:30] LABS: BASOPHILS % 0.1 % (0.0-2.0); EOSINOPHILS % 0.1 % (0.0-7.0); HEMATOCRIT 36.3 % (37.0-47.0); HEMOGLOBIN 12.6 g/dl (12.0-16.0); LYMPHOCYTES # 0.6 10^3/ul (0.8-2.9); LYMPHOCYTES % 6.4 % (15.0-51.0); MEAN CORPUSCULAR HEMOGLOBIN 30.6 pg (29.0-33.0); MEAN CORPUSCULAR HGB CONC 34.7 g/dl (32.0-37.0); MEAN CORPUSCULAR VOLUME 88.1 fl (82.0-101.0); MEAN PLATELET VOLUME 10.1 fl (7.4-10.4); MONOCYTE # 0.2 10^3/ul (0.3-0.9); MONOCYTES % 2.3 % (0.0-11.0); NEUTROPHIL # 9.1 10^3/ul (1.6-7.5); NEUTROPHILS % 90.6 % (39.0-77.0); PLATELET COUNT 221 10^3/UL (140-415); RED BLOOD COUNT 4.12 10^6/ul (4.20-5.40); RED CELL DISTRIBUTION WIDTH 13.8 % (11.5-14.5)
[2018-10-06] MEDS ORDERED: THEOPHYLLINE 400 MG PO (18:35)
[2018-10-06] MEDS: ONDANSETRON 4 MG TAB PO (20:01)
[2018-10-06] MEDS: LOSARTAN 50 MG TAB PO (20:49)
[2018-10-06] MEDS: HYDROCODONE/APAP (5/325) TAB PO (20:50)
[2018-10-06] MEDS: ATORVASTATIN 10 MG TAB PO (20:50)
[2018-10-06] MEDS: FLUTICASONE/VILANTEROL 200-25 INH DEVICE INH (20:51)
[2018-10-06] MEDS: MONTELUKAST 10 MG TAB PO (20:51)
[2018-10-06] MEDS: TIOTROPIUM 18 MCG CAPSULE INHA DEV INH (20:52)
[2018-10-06] MEDS: DULOXETINE 30 MG CAP DR PO (22:20)
[2018-10-06] MEDS: METOCLOPRAMIDE 5 MG TAB PO (22:21)
[2018-10-06] MEDS: DOCUSATE SODIUM 250 MG CAP PO (22:21)
[2018-10-07 03:52] LABS: ADD UMIC YES; UR ASCORBIC ACID 20 mg/dL (NEGATIVE); UR BACTERIA FEW /HPF (NONE SEEN); UR BILIRUBIN (Dip) NEGATIVE (NEGATIVE); UR BLOOD (Dip) NEGATIVE (NEGATIVE); UR CLARITY CLEAR (CLEAR); UR COLOR YELLOW (YELLOW); UR GLUCOSE (Dip) 1+ mg/dL (NEGATIVE); UR KETONES (Dip) TRACE mg/dL (NEGATIVE); UR LEUKOCYTE ESTERASE (Dip) NEGATIVE Leu/ul (NEGATIVE); UR NITRITE (Dip) NEGATIVE (NEGATIVE); UR RBC 12 /HPF (0-5); UR SPECIFIC GRAVITY (Dip) 1.013 (1.003-1.030); UR TOTAL PROTEIN (Dip) 1+ mg/dl (NEGATIVE); UR UROBILINOGEN (Dip) NEGATIVE (NEGATIVE); UR WBC 1 /HPF (0-5)
[2018-10-07] MEDS: PANTOPRAZOLE (EC) 40 MG TAB PO (05:58)
[2018-10-07 06:31] LABS: ADD MAN DIFF? NO
[2018-10-07] MEDS: LEVOTHYROXINE 75 MCG TAB PO (06:33)
[2018-10-07 06:49] LABS: WHITE BLOOD COUNT 11.8 10^3/ul (4.8-10.8)
[2018-10-07 06:49] LABS: BASOPHILS % 0.2 % (0.0-2.0); EOSINOPHILS % 0.1 % (0.0-7.0); HEMATOCRIT 37.6 % (37.0-47.0); HEMOGLOBIN 12.8 g/dl (12.0-16.0); LYMPHOCYTES % 8.2 % (15.0-51.0); MEAN CORPUSCULAR HEMOGLOBIN 30.3 pg (29.0-33.0); MEAN CORPUSCULAR VOLUME 88.9 fl (82.0-101.0); MEAN PLATELET VOLUME 10.6 fl (7.4-10.4); MONOCYTE # 0.9 10^3/ul (0.3-0.9); MONOCYTES % 7.5 % (0.0-11.0); NEUTROPHIL # 9.9 10^3/ul (1.6-7.5); NEUTROPHILS % 83.7 % (39.0-77.0); PLATELET COUNT 272 10^3/UL (140-415); RED BLOOD COUNT 4.23 10^6/ul (4.20-5.40); RED CELL DISTRIBUTION WIDTH 13.6 % (11.5-14.5)
[2018-10-07 07:04] LABS: HEMOGLOBIN A1C 5.3 % (0-5.9)
[2018-10-07 07:20] LABS: ALANINE AMINOTRANSFERASE 35 IU/L (13-69); ALBUMIN/GLOBULIN RATIO 1.66; ALKALINE PHOSPHATASE 92 IU/L (42-121); ANION GAP 10 (5-13); ASPARTATE AMINO TRANSFERASE 36 IU/L (15-46); BILIRUBIN,INDIRECT 0.7 mg/dl (0-1.1); BILIRUBIN,TOTAL 0.7 mg/dl (0.2-1.3); BLOOD UREA NITROGEN 21 mg/dl (7-20); CALCIUM 9.4 mg/dl (8.4-10.2); CARBON DIOXIDE 33 mmol/L (21-31); CHLORIDE 95 mmol/L (97-110); CREATININE 0.74 mg/dl (0.44-1.00); Estimated GFR > 60 mL/min (>60); GLUCOSE 140 mg/dl (70-220); POTASSIUM 3.5 mmol/L (3.5-5.1); SODIUM 138 mmol/L (135-144); TOTAL PROTEIN 6.4 g/dl (6.1-8.1)
[2018-10-07] MEDS: MONTELUKAST 10 MG TAB PO (09:02)
[2018-10-07] MEDS: DOCUSATE SODIUM 250 MG CAP PO (09:02)
[2018-10-07] MEDS: DULOXETINE 30 MG CAP DR PO (09:02)
[2018-10-07] MEDS: BUPROPION (XL) 150 MG TAB PO (09:02)
[2018-10-07] MEDS: THEOPHYLLINE (SR) 200 MG CAPSR PO (09:02)
[2018-10-07] MEDS: FLUTICASONE/VILANTEROL 200-25 INH DEVICE INH (09:03)
[2018-10-07] MEDS: METOPROLOL (XL) 100 MG TAB PO (09:03)
[2018-10-07] MEDS: TIOTROPIUM 18 MCG CAPSULE INHA DEV INH (09:06)
[2018-10-07] MEDS: AMLODIPINE 5 MG TAB PO (15:04)
[2018-10-07] MEDS ORDERED: METOPROLOL (XL) 50 MG TAB PO (21:00)
== END 2018-10-07 16:30 | disposition home or self-care (01) | DRG 379 ==
LOC: E/R 12:26 → 2NE 15:55
DX: K92.0 Hematemesis (principal); K29.70 Gastritis, unspecified, without bleeding; Z79.1 Long term (current) use of non-steroidal anti-inflammatories (NSAID); I10 Essential (primary) hypertension; K44.9 Diaphragmatic hernia without obstruction or gangrene; K21.9 Gastro-esophageal reflux disease without esophagitis; J44.9 Chronic obstructive pulmonary disease, unspecified; E03.9 Hypothyroidism, unspecified; D64.9 Anemia, unspecified
CPT/HCPCS: 36415; 70450; 80053; 81001; 82270; 83036; 84484; 85025; 85610; 85730; 86850; 86900; 86901; 87086; 93005; 96374; 96375; 97161; 99285-25

== ENCOUNTER 2018-10-13 09:59 | Emergency (ER) | payer MEDICARE, OTHER | END 2018-10-13 11:02 | disposition home or self-care (01) | LOC: FTE 09:59 | DX: Z48.02 Encounter for removal of sutures (principal); J45.909 Unspecified asthma, uncomplicated; I10 Essential (primary) hypertension; J44.9 Chronic obstructive pulmonary disease, unspecified; Z96.653 Presence of artificial knee joint, bilateral | CPT/HCPCS: 99281 ==

== ENCOUNTER 2018-11-06 07:23 | Day surgery (SDC) | payer MEDICARE, OTHER ==
[2018-11-06] MEDS ORDERED: LIDOCAINE 2% (SDV) 5 ML INJ (08:38)
[2018-11-06] MEDS ORDERED: PROPOFOL 20 ML (08:38)
[2018-11-06] MEDS ORDERED: hydrALAzine 20 MG INJ (08:56)
[2018-11-06] MEDS ORDERED: ONDANSETRON 4 MG INJ IV (09:00)
== END 2018-11-06 15:13 | disposition home or self-care (01) ==
LOC: GIL 07:23
DX: K21.0 Gastro-esophageal reflux disease with esophagitis (principal); I10 Essential (primary) hypertension; E78.5 Hyperlipidemia, unspecified; J44.9 Chronic obstructive pulmonary disease, unspecified; E66.9 Obesity, unspecified; Z68.33 Body mass index [BMI] 33.0-33.9, adult
CPT/HCPCS: 43239; 88305; 88312; 88313